=== PATIENT | female | born 1960 | race Caucasian/White ===

== ENCOUNTER 2023-05-14 09:13 | Day surgery (SDC) | payer BC ==
[~2023-05-14] VITALS: Ht 162.6 cm; Wt 98.7 kg
[2023-05-14] VITALS (12 sets, daily range): BP systolic 108–138; BP diastolic 60–87; PULSE 70–92; TEMP 98.3
[2023-05-14 09:04] LABS: HEMATOCRIT 41.3 % (37.0-47.0); HEMOGLOBIN 13.7 g/dl (12.5-16.0); MEAN CELL VOLUME 86 fl (80.0-100.0); MEAN CORPUSCULAR HEMOGLOBIN 29 pg (27-31); MEAN CORPUSCULAR HGB CONC 33 g/dl (33.0-37.0); MEAN PLATELET VOLUME 10.4 fl (7.4-10.4); PLATELET COUNT 221 K/mm3 (130-400); RED BLOOD COUNT 4.79 M/mm3 (4.10-5.30)
[2023-05-14 09:12] LABS: INR 1.2 (0.8-3.0); PROTHROMBIN TIME 13.6 SECONDS (9.7-12.8)
[~2023-05-14 09:13] MED LIST: ASPIRIN E.C. 8181 MG PO; BASAGLAR K100 UNIT/1 SQ; BUSPIRONE HCL7.5 MG PO; CRESTOR40 MG PO; FARXIGA10 PO; HCTZ12.5TAB PO; LEXAPRO20 MG PO; LOPRESSOR 550 MG/TAB PO; NOVOLOG 100U100 U/M1 SQ; PRILOSEC 20MG20 MG PO; TRULICITY1.5 MG/0.5 SQ; ZESTRIL 20MG TA20 MG PO; ZETIA 10MG TAB10 MG PO
[2023-05-14 09:15] LABS: PARTIAL THROMBOPLASTIN TIME 28.5 SECONDS (26.0-37.0)
[2023-05-14 09:19] LABS: CALCIUM 9.2 mg/dL (8.4-10.2); CREATININE, serum 0.67 mg/dL (0.57-1.11); POTASSIUM 4.1 mmol/L (3.5-4.5)
[2023-05-14] MEDS ORDERED: PRINIVIL10 MG PO (15:52)
[2023-05-14] MEDS ORDERED: IMDUR 60MG60 MG/TAB PO (15:52)
[2023-05-14] MEDS ORDERED: RANEXA 500MG T500 MG PO (15:55)
--- NOTE | 2023-05-14 16:16 | NUR ---
DC instructions reviewed with pt. She expresses understanding. Air was removed from TR band in 2 ml increments with no bleeding or complication. After air was fully removed from TR band, site was dressed with folded 2x2 and bandaid. Pt has been sitting up in recliner since [address] Leggett and DC paperwork. She has remained free of complaints or needs. She had c/o minor headache after return from [employer] and was medicated with tylenol. Headache pain has completely resolved. IV DC'd, site wrapped with coban. She ate lunch tray after return from procedure, and has denied desire for snack while waiting. She is now waiting in room for arrival of a friend for ride.
--- NOTE | 2023-05-14 17:45 | NUR ---
PT ASSISTED TO ER EXIT VIA WHEELCHAIR WHERE RIDE WAS WAITING FOR HER. RADIAL BAND WAS CLEAN DRY AND INTACT AND PT WAS FREE FROM ACUTE COMPLAINTS AT TIME OF DISCHARGE.
== END 2023-05-14 17:46 | disposition home or self-care (01) ==
LOC: COL.CAR 09:13
PROVIDERS: Internal Medicine Cardiovascular Disease
DX: I25.10 Atherosclerotic heart disease of native coronary artery without angina pectoris (principal); R94.39 Abnormal result of other cardiovascular function study; E66.9 Obesity, unspecified
CPT/HCPCS: C1769; J1644; J2250; J3010; Q9967